=== PATIENT | female | born 1985 ===

== ENCOUNTER → 2018-07-31 | Outpatient (CLI) | payer OTHER ==
[2018-08-05 01:12] LABS: CHLAMYDIA TRACHOMATIS, NAA Negative (Negative); HPV 16 Negative (Negative); HPV 18 Negative (Negative); HPV OTHER HR TYPES Negative (Negative); NEISSERIA GONORRHOEAE, NAA Negative (Negative)
== END | disposition home or self-care (01) ==
LOC: LAB 14:42 → LAB SHORT 14:42
PROVIDERS: Advanced Practice Midwife
DX: Z36.89 Encounter for other specified antenatal screening (principal)
CPT/HCPCS: 87491; 87591; 87624; G0123

== ENCOUNTER → 2018-12-31 | Outpatient (CLI) | payer OTHER | END | disposition home or self-care (01) | LOC: LAB 17:03 → LAB SHORT 17:03 | DX: Z34.80 Encounter for supervision of other normal pregnancy, unspecified trimester (principal) | CPT/HCPCS: 87081; 87653 ==

== ENCOUNTER 2019-01-19 21:03 | Inpatient (IN) | payer OTHER ==
[~2019-01-19] VITALS: Ht 165.1 cm; Wt 75.0 kg
[2019-01-19] MEDS ORDERED: Verotin-Gr Cap1 EACH PO (22:48)
[2019-01-19 22:56] LABS: BASOPHILS ABSOLUTE AUTO 0.02 K/mm3 (0.00-0.23); BASOPHILS PERCENT AUTO 0 % (0-2); EOSINOPHILS ABSOLUTE AUTO 0.01 K/mm3 (0.00-0.68); EOSINOPHILS PERCENT AUTO 0 % (0-6); Hematocrit 31.4 % (33.0-51.0); Hemoglobin 10.2 g/dL (11.5-16.0); IMMATURE GRAN PERCENT AUTO 1 % (0-1); LYMPHOCYTES ABSOLUTE AUTO 2.18 K/mm3 (0.84-5.20); LYMPHOCYTES PERCENT AUTO 18 % (21-46); MONOCYTES PERCENT AUTO 7 % (4-13); Mean Corpuscular HGB 27.9 pg (26.0-34.0); Mean Corpuscular HGB Conc 32.5 g/dL (31.5-36.5); Mean Corpuscular Volume 86 fL (80-100); Mean Platelet Volume 12.8 fL (9.1-12.4); NEUTROPHILS ABSOLUTE AUTO 8.89 K/mm3 (1.96-9.15); NEUTROPHILS PERCENT AUTO 74 % (41-73); Platelet Count 199 K/mm3 (150-400); RDW Coefficient Variation 14.2 % (11.7-14.2); RDW Standard Deviation 44.3 fL (35.1-46.3); Red Blood Cell Count 3.66 M/mm3 (3.80-5.20)
--- NOTE | 2019-01-20 15:00 | NUR ---
REPORT TO NICA DUGAN
[2019-01-21 06:01] LABS: Hematocrit 26.7 % (33.0-51.0); Hemoglobin 8.7 g/dL (11.5-16.0); Mean Corpuscular HGB 27.7 pg (26.0-34.0); Mean Corpuscular HGB Conc 32.6 g/dL (31.5-36.5); Mean Corpuscular Volume 85 fL (80-100); Platelet Count 178 K/mm3 (150-400); RDW Coefficient Variation 14.6 % (11.7-14.2); RDW Standard Deviation 44.3 fL (35.1-46.3); Red Blood Cell Count 3.14 M/mm3 (3.80-5.20); White Blood Cell Count 16.49 K/mm3 (4.00-11.30)
--- NOTE | 2019-01-21 11:56 | NUR ---
PT DISCHARGED TO HOME. DISHCARGE INSTRUCTIONS GIVEN. WENT OVER SIGNS TO WATCH FOR WITH GBS STATUS. NO QUESTIONS OR CONCERNS AT THIS TIME. ADVISED TO CALL WITH ANY QUESTIONS.
== END 2019-01-21 12:15 | disposition home or self-care (01) | DRG 807 ==
LOC: OBS 21:03 → BC 21:04 → OBS 21:37 → BC 21:41
PROVIDERS: ADMIT Advanced Practice Midwife
PROC: 10E0XZZ Delivery of Products of Conception, External Approach (ICD-10-PCS; principal; 2019-01-20)
PROC: 6A550ZT Pheresis of Cord Blood Stem Cells, Single (ICD-10-PCS; 2019-01-20)
DX: O99.824 Streptococcus B carrier state complicating childbirth (principal); Z37.0 Single live birth; O70.1 Second degree perineal laceration during delivery; Z3A.39 39 weeks gestation of pregnancy
CPT/HCPCS: 36415; 85025; 85027; 86850; 86900; 86901; J2540; J2590; J7050; J7120

== ENCOUNTER 2020-12-03 20:26 | Inpatient (IN) | payer OTHER ==
[~2020-12-03] VITALS: Ht 165.1 cm; Wt 75.0 kg
[~2020-12-03 20:26] MED LIST: Verotin-Gr Cap1 EACH PO
--- NOTE | 2020-12-03 21:09 | NUR ---
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 SHE IS BREATHING THROUGH UC'S, SO SHE IS TAKEN TO A LABOR ROOM FOR ASSESSMENT. PT IS PLACED ON MONITOR AND THEN Phillip NGUYEN IS CALLED TO CONFIRN RESOLUTION OF PL[place] PREVIA PRIOR TO VE. Phillip NGUYEN REVIEWS PT RECORD AND CONFIRMS THAT PT NO LONGER HAS PREVIA AND ORDERS VE. PT VE IS 8CM, 100% EFFACED AND BULGING MEMBRANES, SO Lefty HANKINS IS CALLED FOR DELIVERY. PT LABORS STANDING AT BEDSIDE AND HAS SROM WITH CLEAR FLUID AT 2051. Lefty HANKINS DOES VE AT 2099 AND FINDS CERVIX COMPLETELY DILATED AND FOOTLING BREECH PRESENTATION. EXTRA STAFF, DR. WYMAN, AND OR CREW ARE CALLED IN FOR EMERGENCY SECTION, BUT PT DELIVERS BABY VAGINALLY AT 2108. APGARS 8/9, TERMINAL MEC, AND MILD GRUNTING NOTED INITIALLY. WILL CONTINUE TO MONITOR AND PROVIDE CARE.
--- NOTE | 2020-12-03 21:30 | NUR ---
PT IS NOTED TO HAVE PRODUCTIVE SOUNDING COUGH. SHE ADMITS TO HAVING BEEN EXPOSED TO CONFIRMED COVID POSITIVE CASE IN [place] AND WAS SICK OVER [place]. SHE WAS NEVER TESTED IN [place], BUT COVID SCREENING ON ADMIT COMES BACK POSITIVE. ISOLATION IS INITIATED. UPON SCREENING FOR ENTRANCE IN THE UNIT SHE ANSWERRED ALL THE QUESTIONS IN THE NEGATIVE.
[2020-12-03 21:32] LABS: Influenza A, PCR NEGATIVE (NEGATIVE); Influenza B, PCR NEGATIVE (NEGATIVE); Resp Syncytial Virus, PCR NEGATIVE (NEGATIVE)
[2020-12-03 21:33] LABS: SARS-Cov-2 (COVID-19) PCR, MMC POSITIVE (NEGATIVE)
--- NOTE | 2020-12-04 03:59 | NUR ---
PT DECLINES NEED FOR PAIN MEDICATION, STATES [facility] IS HELPING HER BACK.
[2020-12-04 05:10] LABS: BASOPHILS ABSOLUTE AUTO 0.03 K/mm3 (0.00-0.23); BASOPHILS PERCENT AUTO 0 % (0-2); EOSINOPHILS ABSOLUTE AUTO 0.01 K/mm3 (0.00-0.68); EOSINOPHILS PERCENT AUTO 0 % (0-6); Hematocrit 34.9 % (33.0-51.0); Hemoglobin 11.7 g/dL (11.5-16.0); IMMATURE GRAN ABSOLUTE AUTO 0.08 K/mm3 (0.00-0.10); IMMATURE GRAN PERCENT AUTO 1 % (0-1); LYMPHOCYTES ABSOLUTE AUTO 2.23 K/mm3 (0.84-5.20); LYMPHOCYTES PERCENT AUTO 15 % (21-46); MONOCYTES ABSOLUTE AUTO 0.95 K/mm3 (0.16-1.47); MONOCYTES PERCENT AUTO 6 % (4-13); Mean Corpuscular HGB 29.5 pg (26.0-34.0); Mean Corpuscular HGB Conc 33.5 g/dL (31.5-36.5); Mean Corpuscular Volume 88 fL (80-100); Mean Platelet Volume 12.4 fL (9.1-12.4); NEUTROPHILS ABSOLUTE AUTO 11.89 K/mm3 (1.96-9.15); NEUTROPHILS PERCENT AUTO 78 % (41-73); Platelet Count 192 K/mm3 (150-400); RDW Coefficient Variation 13.1 % (11.7-14.2); RDW Standard Deviation 42.2 fL (35.1-46.3); Red Blood Cell Count 3.96 M/mm3 (3.80-5.20); White Blood Cell Count 15.19 K/mm3 (4.00-11.30)
--- NOTE | 2020-12-04 10:25 | NUR ---
Assumed care from Mary Ann Erazo RN.
--- NOTE | 2020-12-04 11:51 | NUR ---
RN/LC ROUNDED TO HELP W/ . 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 FURTHER LC OFFERED. INSTRUCTED MOM TO FEED NB EVERY 2-3 HOUR OR 8+ TIMES IN A 24 HOUR PERIOD, AND ON DEMAND. TALKED W/ PT ABOUT CORRECTLY LATCHING NB AND TIMELINE OF MILK SUPPLY COMING IN. PT VERBALIZED UNDERSTANDING, DENIES ANY FURTHER QUESTIONS OR CONCERNS.
[2020-12-05] MEDS ORDERED: IBUP800 PO (09:54)
== END 2020-12-05 11:07 | disposition home or self-care (01) | DRG 805 ==
LOC: OBS 20:26 → BC 20:29 → OBS 20:43 → BC 20:45
PROVIDERS: ADMIT Nurse Practitioner Obstetrics & Gynecology
PROC: 10E0XZZ Delivery of Products of Conception, External Approach (ICD-10-PCS; principal; 2020-12-03)
PROC: 0HQ9XZZ Repair Perineum Skin, External Approach (ICD-10-PCS; 2020-12-03)
DX: O32.1XX0 Maternal care for breech presentation, not applicable or unspecified (principal); U07.1 COVID-19; Z37.0 Single live birth; O98.52 Other viral diseases complicating childbirth; O70.0 First degree perineal laceration during delivery; Z3A.40 40 weeks gestation of pregnancy
CPT/HCPCS: 0241U; 36415; 85025; A9270

== ENCOUNTER 2020-12-27 22:11 | Emergency (ER) | payer OTHER ==
[~2020-12-27] VITALS: Ht 165.1 cm; Wt 70.3 kg
[~2020-12-27 22:11] MED LIST changes: +IBUP800 PO
[2020-12-27 23:07] LABS: BASOPHILS ABSOLUTE AUTO 0.01 K/mm3 (0.00-0.23); BASOPHILS PERCENT AUTO 0 % (0-2); EOSINOPHILS ABSOLUTE AUTO 0.09 K/mm3 (0.00-0.68); EOSINOPHILS PERCENT AUTO 1 % (0-6); Hematocrit 41.3 % (33.0-51.0); Hemoglobin 13.1 g/dL (11.5-16.0); IMMATURE GRAN ABSOLUTE AUTO 0.01 K/mm3 (0.00-0.10); IMMATURE GRAN PERCENT AUTO 0 % (0-1); LYMPHOCYTES ABSOLUTE AUTO 1.92 K/mm3 (0.84-5.20); LYMPHOCYTES PERCENT AUTO 30 % (21-46); MONOCYTES ABSOLUTE AUTO 0.58 K/mm3 (0.16-1.47); MONOCYTES PERCENT AUTO 9 % (4-13); Mean Corpuscular HGB 28.7 pg (26.0-34.0); Mean Corpuscular HGB Conc 31.7 g/dL (31.5-36.5); Mean Corpuscular Volume 91 fL (80-100); Mean Platelet Volume 12.3 fL (9.1-12.4); NEUTROPHILS ABSOLUTE AUTO 3.83 K/mm3 (1.96-9.15); NEUTROPHILS PERCENT AUTO 59 % (41-73); Platelet Count 253 K/mm3 (150-400); RDW Coefficient Variation 13.5 % (11.7-14.2); RDW Standard Deviation 45.1 fL (35.1-46.3); Red Blood Cell Count 4.56 M/mm3 (3.80-5.20); White Blood Cell Count 6.44 K/mm3 (4.00-11.30)
[2020-12-27 23:28] LABS: Alanine Aminotransfer (ALT/SGP 38 U/L (12-78); Albumin, Blood 3.7 g/dL (3.4-5.0); Albumin/Globulin Ratio 0.9 (0.8-1.8); Alk Phos 90 U/L (50-136); Anion Gap 6 mmol/L (6-16); Aspartate Aminotrans (AST/SGOT 27 U/L (12-37); Beta HCG, Quantitative, Serum 27 mIU/mL (0-3); Bilirubin, Total 0.4 mg/dL (0.1-1.0); Blood Urea Nitrogen 9 mg/dL (8-24); Bun/Creatinine Ratio 11.8 (12.0-20.0); CO2, Blood 27 mmol/L (21-32); Chloride, Blood 107 mmol/L (98-108); Creatinine, Blood 0.76 mg/dL (0.40-1.00); Glomerular Filtration Rate >60 (60-); Glucose, Blood 86 mg/dL (70-99); Potassium, Blood 3.8 mmol/L (3.5-5.5); Sodium, Blood 140 mmol/L (136-145); Total Protein, Blood 7.7 g/dL (6.4-8.2)
[2020-12-27 23:30] LABS: Source, Urine Clean Catch
[2020-12-27 23:32] LABS: Bilirubin, Urine Neg (Neg); Blood, Urine 5+ (Neg); Glucose Qualitative, Urine Neg (Neg); Ketones, Urine Neg (Neg); Leukocyte Esterase, Urine Neg (Neg); Nitrite, Urine Neg (Neg); Protein, Urine Neg (Neg); Specific Gravity, Urine 1.005 (1.003-1.022); Urobilinogen, Urine NORM (Normal)
[2020-12-27 23:41] LABS: Appearance, Urine Clear (Clear); Color, Urine Yellow (P-Yellow)
[2020-12-27 23:44] LABS: Bacteria Few /hpf; Red Blood Cells, Urine 0-2 /hpf (0-2); Squamous Epithelial Cells Few /hpf (Few); White Blood Cells, Urine 0-2 /hpf (0-5)
== END 2020-12-28 02:18 | disposition home or self-care (01) ==
LOC: ER 22:11
PROVIDERS: Physician Assistant
DX: O72.1 Other immediate postpartum hemorrhage (principal)
CPT/HCPCS: 76856; 80053; 81001; 84702; 85025; 86850; 86900; 86901; 96372; 99284-25; A9270; J2210

== ENCOUNTER 2021-01-12 09:35 | Day surgery (SDC) | payer OTHER ==
[~2021-01-12] VITALS: Ht 165.1 cm; Wt 69.1 kg
--- NOTE | 2021-01-12 12:43 | NUR ---
01/12/21 1243 Addis Weaver V PT TEACHING COMPLETED, PT VERBALIZES UNDERSTANDING AND DENIES QUESTIONS AT THIS TIME.
== END 2021-01-12 12:54 | disposition home or self-care (01) ==
LOC: ORSCSDS 09:35
PROVIDERS: Obstetrics & Gynecology
PROC: 10D17ZZ Extraction of Products of Conception, Retained, Via Natural or Artificial Opening (ICD-10-PCS; principal; 2021-01-12 10:45)
DX: O73.1 Retained portions of placenta and membranes, without hemorrhage (principal)
CPT/HCPCS: 88305; A9270; J0690; J1100; J2210; J2405; J2704; J3010; J7120